=== PATIENT | female | born 1975 | race African-American/Black ===

== ENCOUNTER 2017-02-12 09:24 | Inpatient (IN) | payer MEDICARE, MEDICAID ==
[~2017-02-12] VITALS: Ht 157.5 cm; Wt 107.5 kg
[2017-02-12] MEDS ORDERED: IV NORMAL SALINE 1,000ML 1,000 ML IV ONE (10:00)
[2017-02-12 10:17] LABS: BASO % 0 % (0-3); EOS % 0 % (0-3); HEMATOCRIT 26.8 % (36.0-47.0); HEMOGLOBIN 8.4 g/dL (12.0-15.5); LYMPH % 9 % (24-48); MEAN CORPUSCULAR HEMOGLOBIN 24 pg (25-35); MEAN CORPUSCULAR HGB CONC 31 g/dL (31-37); MEAN CORPUSCULAR VOLUME 75 fL (79-100); MONO # 0.5 x10^3/uL (0.0-1.1); MONO % 4 % (0-9); NEUT # 9.8 x10^3uL (1.8-7.7); NEUT % 87 % (31-73); PLATELET COUNT 290 x10^3/uL (140-400); RED BLOOD COUNT 3.58 x10^6/uL (3.50-5.40); RED CELL DISTRIBUTION WIDTH 16.7 % (11.5-14.5); WHITE BLOOD COUNT 11.3 x10^3/uL (4.0-11.0)
[2017-02-12 10:28] LABS: ALBUMIN 2.5 g/dL (3.4-5.0); ALBUMIN/GLOBULIN RATIO 0.4 (1.0-1.7); CALCIUM 9.2 mg/dL (8.5-10.1); CREATININE 1.2 mg/dL (0.6-1.0); GFR 49.3; POTASSIUM 3.2 mmol/L (3.5-5.1); TOTAL BILIRUBIN 0.8 mg/dL (0.2-1.0)
[2017-02-12] MEDS ORDERED: ACETAMINOPHEN 325 MG TABLET PO ONE (10:30)
[2017-02-12] MEDS ORDERED: KETOROLAC 30 MG/ML VIAL. IV ONE (10:30)
[2017-02-12] MEDS ORDERED: ONDANSETRON PF 4 MG/2 ML VIAL. IV ONE (10:30)
--- NOTE | 2017-02-12 10:32 | RAD ---
CHEST PA LATERAL History:fever, cough Comparison: 09/27/2010 Findings:2 views of the chest are submitted. There is patchy mild airspace opacity of the mid to inferior left hemithorax. There is some fullness of the left hilum as seen previously. Heart size is stable. There is no pneumothorax or dependent pleural fluid. Lung markings medial right lung base are fairly similar in appearance. Impression: 1.There is some patchy airspace opacity of the left hemithorax which may be due to pneumonia. 2. There is again some fullness of the left hilum, possibly due to underlying vascular structures as present on the previous exam although lymphadenopathy difficult to exclude by radiograph.
[2017-02-12] MEDS ORDERED: AZITHROMYCIN 500 MG in IV NORMAL SALINE 250ML 250 ML IV ONE (11:30)
[2017-02-12] MEDS ORDERED: cefTRIAXone SODIUM 1 GM VIAL IV ONE (11:34)
[2017-02-12] MEDS ORDERED: IV NORMAL SALINE 50ML 50 ML ONE (11:34)
[2017-02-12 12:23] LABS: BILIRUBIN,URINE NEG (NEG); CLARITY,URINE TURBID; COLOR,URINE AMBER; GLUCOSE,URINE NEG (NEG)
[2017-02-12 12:24] LABS: BACTERIA,URINE MOD /HPF (0-FEW); NITRITE,URINE NEG (NEG); RBC,URINE >40 /HPF (0-2); SQUAMOUS EPITHELIAL CELL,UR MANY /LPF; UROBILINOGEN,URINE 8 mg/dL (0.2 mg/dL)
[2017-02-12] MEDS: IV NORMAL SALINE 1,000ML 1,000 ML IV SCH ×2 (12:32→20:32)
[2017-02-12] MEDS: ACETAMINOPHEN 325 MG TABLET PO PRN ×2 (12:41→23:03)
[2017-02-12] MEDS ORDERED: ONDANSETRON PF 4 MG/2 ML VIAL. IV PRN (12:45)
[2017-02-12] MEDS ORDERED: IV NORMAL SALINE 250ML 250 ML ONE (12:47)
[2017-02-12] MEDS ORDERED: AZITHROMYCIN 500 MG VIAL. IV ONE (12:48)
[2017-02-12] MEDS ORDERED: IPRATRPIUM/ALBUTEROL 0.5/2.5MG 3 ML NEBU. ONE (13:09)
[2017-02-12] MEDS: IPRATRPIUM/ALBUTEROL 0.5/2.5MG 3 ML NEBU. NEB SCH ×2 (13:16→20:40)
--- NOTE | 2017-02-12 13:55 | PHYS DOC ---
Adult General Chief Complaint Chief Complaint: NAUSEA/VOMITING/DIARRHEA HPI HPI Patient is a 41-year-old female who presents to the ER today complaining of fevers, cough, congestion 2 weeks however over the last 1-2 days patient's been getting much worse. Patient reports she's had nausea vomiting for approximately 3-4 days now and has not been able keep anything down. Patient reports she barely ate anything during Thanksgiving. Patient reports she's had a dry productive cough with occasional yellow sputum. Patient complains of a sore throat, headache, fever, diffuse myalgias, diarrhea, abdominal cramping, no dysuria frequency or urgency. Review of systems: Constitutional: Denies fever or chills Eyes: Denies change in visual acuity, redness, or eye pain HENT: Denies nasal congestion or sore throat Respiratory: Denies cough or shortness of breath All other systems were reviewed and found to be within normal limits, except as documented in this note. Physical exam: Constitutional: Well developed, well nourished, no acute distress, non-toxic appearance. HENT: Normocephalic, atraumatic, bilateral external ears normal, nose normal. Eyes: PERRLA, EOMI, conjunctiva normal, no discharge. Neck: Normal range of motion, no tenderness, supple, no stridor. Cardiovascular: Heart rate regular rhythm, Lungs & Thorax: Bilateral breath sounds clear to auscultation Abdomen: No abdominal distention. Skin: Warm, dry, no erythema, no rash. Back: Normal spinal curvature Extremities: No tenderness, no cyanosis, no clubbing, ROM intact, no edema. Neurologic: Alert and oriented X 3, normal motor function, normal sensory function, no focal deficits noted. Psychologic: Affect normal, judgement normal, mood normal. Patient's ER physical exam was most unremarkable: And expiratory wheezing. Warm to touch. No respiratory distress. Patient appears fatigued. No nuchal rigidity , Kernig's, Brudzinski sign. EKG as interpreted by ER physician reveals: Chest x-ray as interpreted by ER physician reveals: Left lower lobe infiltrate per radiology read. Perihilar lymphadenopathy consistent with first sarcoidosis. Labs reviewed: Microcytic anemia Assessment and plan: 1. Pneumonia: Patient lives here today with cough congestion fever with an x- ray consistent with pneumonia. Patient was started on her sepsis protocol with 30 mL/kg of normal saline. Patient was started on IV antibiotics with Rocephin and Zithromax. Patient will be admitted to the hospital for further evaluation and management of her pneumonia sepsis dehydration. Current Medications Current Medications Current Medications Medications (Trade) Dose Ordered Sig/Radha Start Time Stop Time Status Last Admin Dose Admin Acetaminophen (Tylenol) 650 mg PRN Q8HRS PRN 02/12/17 12:45 02/13/17 12:44 02/12/17 12:41 650 MG Azithromycin 500 mg/Sodium Chloride 250 ml @ 250 mls/hr 1X ONCE 02/12/17 11:30 02/12/17 12:29 DC 02/12/17 11:30 250 MLS/HR Ceftriaxone Sodium 1 gm/ Sodium Chloride 50 ml @ 100 mls/hr 1X ONCE 02/12/17 11:30 02/12/17 11:59 DC 02/12/17 11:30 100 MLS/HR Fentanyl Citrate (Fentanyl 2ml Vial) 50 mcg 1X ONCE 02/12/17 12:00 02/12/17 12:01 DC 02/12/17 12:03 50 MCG Ketorolac Tromethamine (Toradol) 30 mg 1X ONCE 02/12/17 10:30 02/12/17 10:31 DC Morphine Sulfate (Morphine 4mg Syringe) 4 mg PRN Q2HR PRN 02/12/17 12:45 02/13/17 12:44 Ondansetron HCl (Zofran) 4 mg PRN Q4HRS PRN 02/12/17 12:45 02/13/17 12:44 Sodium Chloride 1,000 ml @ 125 mls/hr Q8H 02/12/17 12:32 02/13/17 12:31 Allergies Allergies Allergies Coded Allergies Type Severity Reaction Last Updated Verified Penicillins Allergy Unknown 02/12/17 Yes Current Patient Data Vital Signs Vital Signs Date Time Temp Pulse Resp B/P (MAP) Pulse Ox O2 Delivery O2 Flow Rate FiO2 02/12/17 13:17 100 Nasal Cannula 1.0 02/12/17 13:07 100.5 109 14 135/70 (91) Lab Results Laboratory Tests Test 02/12/17 09:57 02/12/17 09:59 02/12/17 11:52 02/12/17 13:11 White Blood Count 11.3 x10^3/uL (4.0-11.0) H Red Blood Count 3.58 x10^6/uL (3.50-5.40) Hemoglobin 8.4 g/dL (12.0-15.5) L Hematocrit 26.8 % (36.0-47.0) L Mean Corpuscular Volume 75 fL (79-100) L Mean Corpuscular Hemoglobin 24 pg (25-35) L Mean Corpuscular Hemoglobin Concent 31 g/dL (31-37) Red Cell Distribution Width 16.7 % (11.5-14.5) H Platelet Count 290 x10^3/uL (140-400) Neutrophils (%) (Auto) 87 % (31-73) H Lymphocytes (%) (Auto) 9 % (24-48) L Monocytes (%) (Auto) 4 % (0-9) Eosinophils (%) (Auto) 0 % (0-3) Basophils (%) (Auto) 0 % (0-3) Neutrophils # (Auto) 9.8 x10^3uL (1.8-7.7) H Lymphocytes # (Auto) 1.0 x10^3/uL (1.0-4.8) Monocytes # (Auto) 0.5 x10^3/uL (0.0-1.1) Eosinophils # (Auto) 0.0 x10^3/uL (0.0-0.7) Basophils # (Auto) 0.0 x10^3/uL (0.0-0.2) Sodium Level 137 mmol/L (136-145) Potassium Level 3.2 mmol/L (3.5-5.1) L Chloride Level 101 mmol/L (98-107) Carbon Dioxide Level 24 mmol/L (21-32) Anion Gap 12 (6-14) Blood Urea Nitrogen 20 mg/dL (7-20) Creatinine 1.2 mg/dL (0.6-1.0) H Estimated GFR (Cockcroft-Gault) 49.3 BUN/Creatinine Ratio 17 (6-20) Glucose Level 159 mg/dL (70-99) H Calcium Level 9.2 mg/dL (8.5-10.1) Total Bilirubin 0.8 mg/dL (0.2-1.0) Aspartate Amino Transferase (AST) 20 U/L (15-37) Alanine Aminotransferase (ALT) 21 U/L (14-59) Alkaline Phosphatase 171 U/L (46-116) H Total Protein 9.0 g/dL (6.4-8.2) H Albumin 2.5 g/dL (3.4-5.0) L Albumin/Globulin Ratio 0.4 (1.0-1.7) L Lipase 74 U/L (73-393) Lactic Acid Level 2.0 mmol/L (0.4-2.0) Urine Collection Type Unknown Urine Color Liz Urine Clarity Turbid Urine pH 6.0 Urine Specific [place] 1.020 Urine Protein >100 mg/dl (NEG-TRACE) Urine Glucose (UA) Neg mg/dL (NEG) Urine Ketones (Stick) Neg mg/dL (NEG) Urine Blood Large (NEG) Urine Nitrite Neg (NEG) Urine Bilirubin Neg (NEG) Urine Urobilinogen Dipstick 8 mg/dL (0.2 mg/dL) Urine Leukocyte Esterase Trace (NEG) Urine RBC >40 /HPF (0-2) Urine WBC 11-20 /HPF (0-4) Urine Squamous Epithelial Cells Many /LPF Urine Bacteria Mod /HPF (0-FEW) POC Urine HCG, Qualitative hcg negative (Negative) EKG EKG [] Radiology/Procedures Radiology/Procedures [] Course & Med Decision Making Course & Med Decision Making Pertinent Labs and Imaging studies reviewed. (See chart for details) [] Dragon Disclaimer Dragon Disclaimer This electronic medical record was generated, in whole or in part, using a voice recognition dictation system. Departure Departure: Impression: Primary Impression: Pneumonia Disposition: ADMITTED INPATIENT Admitting Physician: Terrie Lovell Condition: IMPROVED Referrals: PCP,UNKNOWN (PCP) RIAZ VILLALBA MD Feb 12, 2017 13:55
[2017-02-12 14:09] VITALS: BP 108/59
[2017-02-12] MEDS ORDERED: ALPR2TAB5 (14:50)
--- NOTE | 2017-02-12 16:33 | HP ---
ADMIT DATE: 02/12/2017 HISTORY OF PRESENT ILLNESS: The patient is a 41-year-old female patient who came to the Emergency Room complaining of fever, cough, congestion for the last 2 weeks; however, over the last 1-2 days, the patient has been getting much worse. She reports that she has nausea, vomiting for approximately 3-4 days, now she has not been able to keep anything down. She has also anorexia. She reported that she had dry productive cough with occasional yellow sputum. She has sore throat, headache and diffuse myalgia, diarrhea, abdominal cramping, but denied any dysuria, frequency or hematuria. She was evaluated in the Emergency Room, and her chest x-ray showed that she has a left-sided pneumonia, was given IV fluid as well as IV antibiotic in the form of Rocephin and Zithromax and was admitted for further evaluation and management of her pneumonia, sepsis and dehydration. PAST MEDICAL HISTORY: Significant for sarcoidosis that has been in remission ___ as the last time show her team at [facility] was about 2 years ago. She has not received any steroids for a long time. She has fatty liver. She has also iritis and was treated recently for urinary tract infection with ciprofloxacin. PAST SURGICAL HISTORY: Significant for sleeve surgery in November 2014. She has also 2 fibroids removed from her uterus. ALLERGIES: She has no known drug allergies. MEDICATIONS: She is currently on no medication by prescription or [id number]. FAMILY HISTORY: She has 3 sisters and 2 brothers, all of them younger. Her parents are in their early 60s and both healthy. SOCIAL HISTORY: She is and has no children. She does not smoke, drink alcohol or recreational drugs. She continues to be on disability. REVIEW OF SYSTEMS: The patient denied any blurring of vision, cataract, glaucoma or macular degeneration. Denied any earache, tinnitus or sensorineural deafness. Denied any nosebleeds, but did complain of nasal stuffiness. Denied any sore throat, sore tongue, toothache, hoarseness of voice or difficulty swallowing. Did complain of nausea, vomiting and diarrhea, but no hematemesis, melena or hematochezia. Denied any dysuria, frequency, hematuria. Did complain of shortness of breath and cough, but denied any chest pain, orthopnea, or nocturnal dyspnea. Did complain of aches and pains, anorexia and poor appetite. PHYSICAL EXAMINATION: GENERAL: On arrival to the Emergency Room, she looked well and was clearly in no apparent respiratory distress. No pallor, jaundice, cyanosis, or thyromegaly. No jugular venous distension. No limb edema. VITAL SIGNS: Her heart rate was 119, blood pressure 141/89, temperature was 99.3, respiratory rate was 16, and oxygen saturation was 95%. HEAD, EYES, EARS, NOSE, AND THROAT: Shows normocephalic, atraumatic. NECK: Supple. HEART: Showed normal first and second heart sounds with no gallop, rub or murmur. CHEST: Shows central trachea, equal bilateral expansion, air entry, vesicular sounds. Crepitation mostly in the left side. I could not appreciate any rhonchi. ABDOMEN: Distended, soft, nontender. NEUROLOGIC: She was very sleepy, but arousable. All cranial nerves intact. EXTREMITIES: She moves extremities without difficulty. LABORATORY DATA: On arrival showed a white cell count of 11,300, hemoglobin 8.4, hematocrit 26.8, MCV 75 and platelet count of 290,000 with normal manual differential. Her chemistry showed a serum sodium 137, potassium 3.2, chloride 101, bicarbonate 24, anion gap of 12, BUN 20, creatinine 1.2, estimated GFR was 49 mL per minute. Her glucose was 159. Lactic acid was 2. Calcium was 9.2. Total bilirubin, AST, ALT were normal. Alkaline phosphatase was elevated. Her total protein was 9, albumin 2.5, and her serum lipase was 74. Her urinalysis showed the urine was alex, turbid with a pH of 6, specific gravity of 1.020. The urine was positive for protein, negative for glucose, ketones, large amount of blood, negative for nitrite and bilirubin. There was trace of leukocyte esterase. There was more than 40 rbc's, 11-20 wbc's many, moderate amount of urine bacteria. Her urine test was negative. She has had a chest x-ray, which showed there is some patchy airspace opacity of the left hemithorax, which may be due to pneumonia. There is some fullness of the left hilum, possibly due to underlying vascular structure, although lymphadenopathy is difficult to exclude by radiograph. ASSESSMENT AND PLAN: In summary, this is a 41-year-old female patient who is known to have longstanding sarcoidosis in remission, came with a complaint of nausea, vomiting, diarrhea, anorexia, generalized weakness and fever together with cough, chest pain and yellowish to brownish sputum. Chest x-ray showed that she has left lung pneumonia. She was treated with IV fluid and was started on IV Rocephin and Zithromax. We will obviously follow her closely and decide on further management according to her response. ODALIS ANDINO MD DR: MAG/alice JOB#: [id number] / [id number]
[2017-02-12] MEDS: MORPHINE SULFATE 4 MG/ML DISP.SYRIN. IV PRN (16:34)
[2017-02-12 19:10] VITALS: BP 116/64
[2017-02-12 23:12] VITALS: BP 144/70
[2017-02-13 03:00] VITALS: BP 118/68
[2017-02-13] MEDS: MORPHINE SULFATE 4 MG/ML DISP.SYRIN. IV PRN (04:57)
[2017-02-13] MEDS: IPRATRPIUM/ALBUTEROL 0.5/2.5MG 3 ML NEBU. NEB SCH ×3 (05:31→16:21)
[2017-02-13 05:59] LABS: BASO % 0 % (0-3); EOS # 0.1 x10^3/uL (0.0-0.7); EOS % 1 % (0-3); HEMATOCRIT 22.2 % (36.0-47.0); LYMPH # 2.2 x10^3/uL (1.0-4.8); LYMPH % 19 % (24-48); MEAN CORPUSCULAR HEMOGLOBIN 23 pg (25-35); MEAN CORPUSCULAR HGB CONC 31 g/dL (31-37); MEAN CORPUSCULAR VOLUME 75 fL (79-100); MONO # 0.8 x10^3/uL (0.0-1.1); MONO % 7 % (0-9); NEUT # 8.4 x10^3uL (1.8-7.7); NEUT % 73 % (31-73); PLATELET COUNT 256 x10^3/uL (140-400); RED BLOOD COUNT 2.96 x10^6/uL (3.50-5.40); RED CELL DISTRIBUTION WIDTH 16.8 % (11.5-14.5); WHITE BLOOD COUNT 11.6 x10^3/uL (4.0-11.0)
[2017-02-13 06:07] LABS: ALBUMIN 1.9 g/dL (3.4-5.0); ALBUMIN/GLOBULIN RATIO 0.3 (1.0-1.7); C REACTIVE PROTEIN 229.9 mg/L (0-3.3); CALCIUM 7.9 mg/dL (8.5-10.1); CREATININE 0.9 mg/dL (0.6-1.0); GFR 83.1; TOTAL BILIRUBIN 0.6 mg/dL (0.2-1.0); TOTAL PROTEIN 7.4 g/dL (6.4-8.2)
[2017-02-13 06:10] LABS: POTASSIUM 2.8 mmol/L (3.5-5.1)
[2017-02-13 06:11] LABS: HEMOGLOBIN 6.9 g/dL (12.0-15.5)
[2017-02-13] MEDS ORDERED: POTASSIUM CHLORIDE 20 MEQ TABLET.ER. PO ONE ×4 (06:30→10:30)
[2017-02-13 06:40] LABS: SEDIMENTATION RATE > 130 (0-25)
[2017-02-13 07:10] VITALS: BP 138/79
[2017-02-13] MEDS ORDERED: POTASSIUM CHLORIDE 20 MEQ/15 ML ORAL LIQUID. PO ONE ×2 (08:00→09:00)
[2017-02-13] MEDS: ACETAMINOPHEN 325 MG TABLET PO PRN (08:08)
[2017-02-13] MEDS ORDERED: FLU VACC QS2017-18 (36MOS+)/PF 0.5 ML SYRINGE. VAX IM ONE (09:00)
[2017-02-13] MEDS ORDERED: PNEUMOC CONJ VACC 23-VALENT 0.5 ML VIAL. VAX IM ONE (09:00)
[2017-02-13 10:22] LABS: BASO # 0.1 x10^3/uL (0.0-0.2); BASO % 1 % (0-3); EOS # 0.2 x10^3/uL (0.0-0.7); EOS % 2 % (0-3); HEMATOCRIT 24.3 % (36.0-47.0); HEMOGLOBIN 7.5 g/dL (12.0-15.5); LYMPH # 2.5 x10^3/uL (1.0-4.8); LYMPH % 23 % (24-48); MEAN CORPUSCULAR HEMOGLOBIN 23 pg (25-35); MEAN CORPUSCULAR HGB CONC 31 g/dL (31-37); MEAN CORPUSCULAR VOLUME 75 fL (79-100); MONO # 0.7 x10^3/uL (0.0-1.1); MONO % 7 % (0-9); NEUT # 7.3 x10^3uL (1.8-7.7); NEUT % 68 % (31-73); PLATELET COUNT 280 x10^3/uL (140-400); RED BLOOD COUNT 3.25 x10^6/uL (3.50-5.40); RED CELL DISTRIBUTION WIDTH 16.5 % (11.5-14.5); WHITE BLOOD COUNT 10.8 x10^3/uL (4.0-11.0)
[2017-02-13 10:35] LABS: ALBUMIN/GLOBULIN RATIO 0.4 (1.0-1.7); CREATININE 0.9 mg/dL (0.6-1.0); GFR 83.1; POTASSIUM 3.2 mmol/L (3.5-5.1); TOTAL BILIRUBIN 0.5 mg/dL (0.2-1.0); TOTAL PROTEIN 7.4 g/dL (6.4-8.2)
[2017-02-13 11:12] VITALS: BP 141/77
[2017-02-13] MEDS: AZITHROMYCIN 500 MG in IV NORMAL SALINE 250ML 250 ML IV SCH (11:26)
[2017-02-13 15:59] VITALS: BP 140/82
[2017-02-13 18:42] LABS: HEMATOCRIT 24.2 % (36.0-47.0); HEMOGLOBIN 7.4 g/dL (12.0-15.5)
[2017-02-13] MEDS ORDERED: ACETAMINOPHEN 325 MG TABLET PO PRN (18:45)
[2017-02-13 18:51] LABS: CALCIUM 8.3 mg/dL (8.5-10.1); CREATININE 0.7 mg/dL (0.6-1.0); POTASSIUM 3.6 mmol/L (3.5-5.1)
[2017-02-13 19:15] VITALS: BP 163/78
[2017-02-13] MEDS: LACTOBACILLUS RHAMNOSUS GG 1 CAPSULE. PO SCH (20:15)
[2017-02-13] MEDS: HYDROcodone/APAP 5/325MG 1 TAB TABLET PO PRN (20:16)
--- NOTE | 2017-02-13 22:12 | PN ---
DATE: 02/13/2017 SUBJECTIVE: The patient is resting, slightly propped up in bed, in no apparent distress. She is definitely more awake, alert, has had no further episodes of nausea, vomiting, no diarrhea. Denied any chest pain or shortness of breath; however, her potassium this morning was low at 2.8. She also dropped her H and H to 6.9 and 22 and on questioning her, she stated that she has been told that she is anemic, has been treated with multiple courses of iron without much improvement. PHYSICAL EXAMINATION: GENERAL: When I examined her this afternoon, she looked well and was clearly in no apparent respiratory distress, pale, but no jaundice, cyanosis, or thyromegaly. No jugular venous distension. No lower limb edema. VITAL SIGNS: Her heart rate was 97, blood pressure was 141/77, temperature was 97, respiratory rate was 18 and oxygen saturation was 98% on 2 liters of oxygen. HEAD, EYES, EARS, NOSE, AND THROAT: Showed normocephalic, atraumatic. NECK: Supple. HEART: Showed normal first and second heart sounds with no gallop, rub, or murmur. CHEST: Clear to auscultation. No crepitation or rhonchi. ABDOMEN: Distended, soft, nontender. No guarding or rigidity. No organomegaly. Hernial orifices are intact. Bowel sounds normal. NEUROLOGIC: She was awake, alert, responding appropriately. Her cranial nerves intact. She moves extremities without difficulty, although she has been mostly bed bound. Her intake over the last 24 hours was 870, output was 1450. LABORATORY DATA: This morning showed a serum white cell count of 11,600, hemoglobin was 6.9, hematocrit 22.2, MCV 75, and platelet count of 256,000. Her sedimentation rate was more than 130 mm per hour. Her serum sodium was 141, potassium 2.8, chloride 106, bicarbonate 28, anion gap of 7, BUN 10, creatinine 0.9, estimated GFR was 83 mL per minute. Her glucose was 93, calcium was 7.9. Total bilirubin, AST, ALT were normal. Alkaline phosphatase slightly elevated. Her C-reactive protein was high at 229.9 mg/dL. Total protein was 7.4, albumin was 1.9. Urinalysis was unremarkable. ASSESSMENT: In summary, this is a 41-year-old -[place] female patient, who was admitted with: 1. Longstanding sarcoidosis in remission. 2. Nausea, vomiting, diarrhea, anorexia, generalized weakness, and fever together with cough, chest pain, and yellowish to brownish sputum. The chest x-ray is consistent with left lung pneumonia, was treated with community-acquired pneumonia. 3. Dehydration. 4. Hypokalemia. 5. Microcytic hypochromic anemia with hemoglobin 8.4, hematocrit 27 with MCV of 75. 6. Her inflammatory markers were extremely high including an ESR of more than 130 and C-reactive protein of 229.9 mg/dL. 7. Severe protein-calorie malnutrition with serum albumin is only 2 g/dL. PLAN: My plan is to basically replenish her potassium and we have already given her a total of 120 mEq and her potassium has risen to 3.2. I will repeat her labs this evening as well as hemoglobin and hematocrit. I will check her labs again tomorrow and also check her serum iron, TIBC, and serum ferritin. ODALIS ANDINO MD DR: MAG/alice JOB#: [id number] / [id number]
[2017-02-13 23:00] VITALS: BP 166/80
[2017-02-14] MEDS: HYDROcodone/APAP 5/325MG 1 TAB TABLET PO PRN (02:41)
[2017-02-14] MEDS ORDERED: IPRATRPIUM/ALBUTEROL 0.5/2.5MG 3 ML NEBU. ONE (05:59)
[2017-02-14] MEDS ORDERED: ALBUTEROL SULFATE 2.5 MG/3 ML NEBU. NEB PRN (06:00)
[2017-02-14] MEDS: IPRATRPIUM/ALBUTEROL 0.5/2.5MG 3 ML NEBU. NEB SCH ×4 (06:03→21:49)
[2017-02-14 07:00] VITALS: BP 123/72
[2017-02-14 07:35] LABS: HEMATOCRIT 24.6 % (36.0-47.0); HEMOGLOBIN 7.7 g/dL (12.0-15.5); RED BLOOD COUNT 3.27 x10^6/uL (3.50-5.40); RED CELL DISTRIBUTION WIDTH 16.3 % (11.5-14.5); WHITE BLOOD COUNT 8.4 x10^3/uL (4.0-11.0)
[2017-02-14 07:40] LABS: ALBUMIN/GLOBULIN RATIO 0.4 (1.0-1.7); CALCIUM 8.4 mg/dL (8.5-10.1); CREATININE 0.7 mg/dL (0.6-1.0); POTASSIUM 3.3 mmol/L (3.5-5.1); TOTAL BILIRUBIN 0.3 mg/dL (0.2-1.0); TOTAL PROTEIN 7.4 g/dL (6.4-8.2)
[2017-02-14] MEDS ORDERED: KETOROLAC 15 MG/ML VIAL. IV PRN (08:30)
[2017-02-14] MEDS ORDERED: KETOROLAC 15 MG/ML VIAL. IV ONE (08:30)
[2017-02-14] MEDS: LIDOCAINE (700MG/PATCH) PATCH. TD SCH (08:58)
[2017-02-14] MEDS: guaiFENesin DM 600/30MG 1 TAB TAB.ER.12H PO SCH ×2 (08:58→21:38)
[2017-02-14] MEDS: POTASSIUM CHLORIDE 20 MEQ TABLET.ER. PO SCH ×2 (08:58→14:19)
[2017-02-14] MEDS: LACTOBACILLUS RHAMNOSUS GG 1 CAPSULE. PO SCH ×2 (08:58→21:38)
[2017-02-14] MEDS: AZITHROMYCIN 500 MG in IV NORMAL SALINE 250ML 250 ML IV SCH (10:35)
[2017-02-14 11:09] VITALS: BP 148/76
[2017-02-14] MEDS ORDERED: IOHEXOL 300 MG/ML 75 ML VIAL. IV ONE (13:00)
--- NOTE | 2017-02-14 14:15 | RAD ---
CT chest with contrast Indication: Cough and elevated d-dimer. Chest pain. Technique: CT angiogram of the chest with 75 mL of Omnipaque 300 with multi planar MIP reformats. Comparison: None Findings: Slightly suboptimal PE study secondary to contrast bolus timing and body habitus. There are no central or segmental filling defects in the pulmonary arteries. Evaluation of subsegmental arteries is limited. Heart is normal in size. No pericardial effusion. No axillary, mediastinal or hilar adenopathy. Focal consolidation is seen in the apicoposterior segment of the left upper lobe and lingula with air bronchograms. Patchy opacities are seen in the left lower lobe. Right lung is clear. Trace left pleural effusion. Visualized sections through the liver are within normal limits. Spleen within normal limits. No radiopaque gallstones. Visualized pancreas and adrenals are within normal limits. Partial gastrectomy changes. No suspicious bony lesions. Impression: 1. Slightly suboptimal PE study secondary to contrast bolus timing. No central or segmental PE. Subsegmental PE also unlikely however not completely ruled out. 2. Findings of left lung pneumonia with trace left pleural effusion. PQRS Compliance Statement: One or more of the following individualized dose reduction techniques were utilized for this examination: 1. Automated exposure control 2. Adjustment of the mA and/or kV according to patient size 3. Use of iterative reconstruction technique
[2017-02-14 18:38] VITALS: BP 128/74
[2017-02-14 19:04] LABS: FECAL OB PT NEGATIVE (NEG)
[2017-02-14 23:00] VITALS: BP 161/81
[2017-02-15] VITALS (8 sets, daily range): BP systolic 148–226; BP diastolic 77–112
--- NOTE | 2017-02-15 00:26 | PN ---
DATE: 02/14/2017 PROBLEMS: 1. Nausea, vomiting, diarrhea, and weakness. 2. Community-acquired pneumonia, left lung. 3. Dehydration. 4. Severe microcytic anemia, iron study is pending. 5. Markedly elevated inflammatory markers, possible exacerbation of her sarcoidosis. 6. Severe protein-calorie malnutrition. 7. Hypokalemia, being treated. SUBJECTIVE: The patient was seen in her room. She has been having headache. She continues to get headache, particularly when she coughs. Sputum is getting looser now and she is able to bring up some of the sputum, it has been sent to the lab, culture is pending. She is having some left-sided chest pain, which is from the coughing. Overall, does not feel the greatest. OBJECTIVE: VITAL SIGNS: Blood pressure 140/76, pulse 106, respiratory rate 18, pulse ox 98% on room air, this morning, it was 92%, on 2 liters, sitting up in bed. HEENT: Her eyes were clear. Her tongue was moist. Posterior pharynx with some drainage. NECK: Supple. LUNGS: Clear in all hong. CARDIOVASCULAR: Regular rhythm and rate, slightly tachycardic. ABDOMEN: Soft and nontender. EXTREMITIES: Without edema. MUSCULOSKELETAL: She does have palpatory left-sided chest pain. LABORATORY DATA: I did go ahead and check the troponin, it is 0.017. Urinalysis, culture is pending. Possible urinary tract infection. CBC: Hemoglobin 7.7, hematocrit 24.6, MCV is 75. Iron studies are pending. PLAN: We will repeat chest x-ray, lidocaine patch for chest pain. We will administer very small dose of Toradol, replace her potassium, and go from there. ISMAEL WOLFE DO DR: ANNMARIE/alice JOB#: [id number] / [id number]
[2017-02-15 07:49] LABS: BASO % 1 % (0-3); EOS # 0.3 x10^3/uL (0.0-0.7); EOS % 3 % (0-3); HEMATOCRIT 25.7 % (36.0-47.0); HEMOGLOBIN 8.1 g/dL (12.0-15.5); LYMPH # 1.9 x10^3/uL (1.0-4.8); LYMPH % 21 % (24-48); MEAN CORPUSCULAR HEMOGLOBIN 23 pg (25-35); MEAN CORPUSCULAR HGB CONC 31 g/dL (31-37); MEAN CORPUSCULAR VOLUME 75 fL (79-100); MONO # 0.5 x10^3/uL (0.0-1.1); MONO % 5 % (0-9); NEUT # 6.1 x10^3uL (1.8-7.7); NEUT % 70 % (31-73); PLATELET COUNT 438 x10^3/uL (140-400); RED BLOOD COUNT 3.45 x10^6/uL (3.50-5.40); RED CELL DISTRIBUTION WIDTH 16.6 % (11.5-14.5); WHITE BLOOD COUNT 8.8 x10^3/uL (4.0-11.0)
[2017-02-15 07:55] LABS: ALBUMIN 2.2 g/dL (3.4-5.0); ALBUMIN/GLOBULIN RATIO 0.4 (1.0-1.7); CALCIUM 8.7 mg/dL (8.5-10.1); CREATININE 0.8 mg/dL (0.6-1.0); GFR 95.2; MAGNESIUM 1.7 mg/dL (1.8-2.4); POTASSIUM 4.1 mmol/L (3.5-5.1); TOTAL BILIRUBIN 0.3 mg/dL (0.2-1.0)
[2017-02-15] MEDS: LACTOBACILLUS RHAMNOSUS GG 1 CAPSULE. PO SCH ×2 (08:44→21:14)
[2017-02-15] MEDS: POTASSIUM CHLORIDE 20 MEQ TABLET.ER. PO SCH ×2 (08:45→13:29)
[2017-02-15] MEDS: LIDOCAINE (700MG/PATCH) PATCH. TD SCH (08:45)
[2017-02-15] MEDS: AZITHROMYCIN 250 MG TABLET. PO SCH (08:45)
[2017-02-15] MEDS: guaiFENesin DM 600/30MG 1 TAB TAB.ER.12H PO SCH ×2 (08:45→21:14)
[2017-02-15 08:52] LABS: % BANDS 2 % (0-9); % EOS 2 % (0-5); % LYMPHS 29 % (24-48); % MONOS 1 % (0-10); % SEGS 65 % (35-66)
[2017-02-15 08:53] LABS: HYPOCHROMIA SLIGHT; PLATELET CLUMP PRESENT; PLT ESTIMATE ADEQUATE (ADEQUATE); POLYCHROMASIA SLIGHT
[2017-02-15 08:54] LABS: MICROCYTOSIS SLIGHT; OVALOCYTES OCC
--- NOTE | 2017-02-15 09:11 | PDOC2 ---
TEODOROJOSHUA Jose MANAGER JAVA 02/15/17 0911: CONSULT Date of Admission DATE: 02/15/17 TIME: 09:09 Reason for Consult: hypertension Problem List Problems Medical Problems: (1) Pneumonia Status: Acute History of Present Illness Ms Pryor is a 41 year old female with history of hypertension, diabetes, sarcoidosis, who presented with complaints of dyspnea and atypical chest pain. She was found to have pneumonia and admitted for tx. This am she was noted to have elevated blood pressures so consult was called. She reports she was treated for hypertension until ~2 years ago when she underwent bariatric surgery and that she has not required medical therapy for hypertension or diabetes since that time. She denies any cardiac issues and reports having echocardiogram and stress testing at where she was being managed for her sarcoidosis. She reports these were normal. She also reports a prior cardiac cath at during the same time which also failed to reveal any significant abnormalities. She reports cough, dyspnea and chest discomfort with cough, fever and chills for about the last two weeks. She is beginning to feel better but continues to cough at this time. She denies congestive symptoms, other chest discomforts, palpitations or syncope. Past Medical History sarcoidosis, managed by , that has been in remission about 2 years. She reports full cardiac workup at that time which was negative. Additional history includes hypertension, diabetes, fatty liver, iritis, UTI, Uterine fibroids, chronic anemia Past Surgical History gastric sleeve surgery in November 2014. removal of uterine fibroids. Family History She has 3 sisters and 2 brothers, all of them younger. Her parents are in their early 60s and both healthy. Cardiomyopathy in paternal grandfather. Social History She is a non smoker, denies significant ETOH, or illicit drugs. She is and has no children. She is disabled. Current Medications Current Medications Ondansetron HCl (Zofran) 4 mg 1X ONCE IV Last administered on 02/12/17 10:18 ; Start 02/12/17 at 10:30; Stop 02/12/17 at 10:31; Status DC Sodium Chloride 1,000 ml @ 1,000 mls/hr 1X ONCE IV Last administered on 02/12 10:19; Start 02/12/17 at 10:00; Stop 02/12/17 at 10:59; Status DC Acetaminophen (Tylenol) 650 mg 1X ONCE PO ; Start 02/12/17 at 10:30; Stop at 10:31; Status DC Ketorolac Tromethamine (Toradol) 30 mg 1X ONCE IV ; Start 02/12/17 at 10:30; Stop 02/12/17 at 10:31; Status DC Ceftriaxone Sodium 1 gm/ Sodium Chloride 50 ml @ 100 mls/hr 1X ONCE IV Last administered on 02/12/17 11:30; Start 02/12/17 at 11:30; Stop 02/12/17 at 11 :59; Status DC Azithromycin 500 mg/Sodium Chloride 250 ml @ 250 mls/hr 1X ONCE IV Last administered on 02/12/17 11:30; Start 02/12/17 at 11:30; Stop 02/12/17 at 12 :29; Status DC Fentanyl Citrate (Fentanyl 2ml Vial) 50 mcg 1X ONCE IV Last administered on 12:03; Start 02/12/17 at 12:00; Stop 02/12/17 at 12:01; Status DC Ondansetron HCl (Zofran) 4 mg PRN Q4HRS PRN IV NAUSEA/VOMITING; Start at 12:45; Stop 02/13/17 at 12:44; Status DC Morphine Sulfate (Morphine 4mg Syringe) 4 mg PRN Q2HR PRN IV PAIN Last administered on 02/13/17 04:57; Start 02/12/17 at 12:45; Stop 02/13/17 at 12 :44; Status DC Sodium Chloride 1,000 ml @ 125 mls/hr Q8H IV Last administered on 02/12/17 20:32; Start 02/12/17 at 12:32; Stop 02/13/17 at 07:39; Status DC Acetaminophen (Tylenol) 650 mg PRN Q8HRS PRN PO FEVER Last administered on 08:08; Start 02/12/17 at 12:45; Stop 02/13/17 at 12:44; Status DC Albuterol/ Ipratropium (Duoneb) 3 ml RTQID NEB Last administered on 02/13/17 16:21; Start 02/12/17 at 16:00; Stop 02/13/17 at 15:59; Status DC Influenza Virus Vaccine Quadrival (Fluarix Quad 3722-5537 Syringe) 0.5 ml ONCE ONCE VAX IM ; Start 02/13/17 at 09:00; Stop 02/13/17 at 09:01; Status Cancel Pneumococcal Polyvalent Vaccine (Pneumovax 23) 0.5 ml ONCE ONCE VAX IM ; Start 02/13/17 at 09:00; Stop 02/13/17 at 09:01; Status DC Potassium Chloride (Klor-Con) 40 meq 1X ONCE PO Last administered on 06:44; Start 02/13/17 at 06:30; Stop 02/13/17 at 06:38; Status DC Potassium Chloride (Klor-Con) 40 meq 1X ONCE PO ; Start 02/13/17 at 08:30; Stop 02/13/17 at 08:30; Status DC Potassium Chloride (Klor-Con) 40 meq 1X ONCE PO ; Start 02/13/17 at 10:30; Stop 02/13/17 at 10:31; Status Cancel Potassium Chloride (KCl Oral Soln) 40 meq 1X ONCE PO Last administered on 08:09; Start 02/13/17 at 08:00; Stop 02/13/17 at 08:01; Status DC Potassium Chloride (KCl Oral Soln) 40 meq 1X ONCE PO ; Start 02/13/17 at 09:00 ; Stop 02/13/17 at 09:01; Status Cancel Potassium Chloride (Klor-Con) 40 meq 1X ONCE PO Last administered on 09:16; Start 02/13/17 at 09:00; Stop 02/13/17 at 09:01; Status DC Azithromycin 500 mg/Sodium Chloride 250 ml @ 250 mls/hr Q24H IV Last administered on 02/14/17 10:35; Start 02/13/17 at 11:00; Stop 02/14/17 at 13 :27; Status DC Ceftriaxone Sodium 1 gm/ Sodium Chloride 50 ml @ 100 mls/hr Q24H IV Last administered on 02/14/17 10:36; Start 02/13/17 at 10:00 Lactobacillus Rhamnosus (Culturelle) 1 cap BID PO Last administered on 08:44; Start 02/13/17 at 21:00 Acetaminophen (Tylenol) 650 mg PRN Q4HRS PRN PO PAIN / TEMP Last administered on 02/13/17 18:51; Start 02/13/17 at 18:45 Acetaminophen/ Hydrocodone Bitart (Lortab 5/325) 1 tab PRN Q4HRS PRN PO PAIN Last administered on 02/14/17 02:41; Start 02/13/17 at 19:30 Albuterol/ Ipratropium (Duoneb) 3 ml RTQID NEB Last administered on 02/14/17 21:49; Start 02/14/17 at 08:00 Albuterol Sulfate (Ventolin) 2.5 mg PRN Q4HRS PRN NEB SHORTNESS OF BREATH; Start 02/14/17 at 06:00 Guaifenesin (MUCINEX ER with DM) 1 tab BID PO Last administered on 02/15/17 08:45; Start 02/14/17 at 09:00 Lidocaine (Lidoderm) 1 patch DAILY TD Last administered on 02/14/17 08:58; Start 02/14/17 at 09:00 Potassium Chloride (Klor-Con) 20 meq BID92 PO Last administered on 02/15/17 08:45; Start 02/14/17 at 09:00 Ketorolac Tromethamine (Toradol) 15 mg PRN Q6HRS PRN IV PAIN; Start 02/14/17 at 08:30; Stop 02/19/17 at 08:29 Ketorolac Tromethamine (Toradol) 15 mg 1X ONCE IV Last administered on 08:59; Start 02/14/17 at 08:30; Stop 02/14/17 at 08:32; Status DC Sodium Chloride 50 ml @ As Directed STK-MED ONCE .ROUTE ; Start 02/12/17 at 11: 34; Stop 02/14/17 at 10:59; Status DC Ceftriaxone Sodium (Rocephin) 1 gm STK-MED ONCE IV ; Start 02/12/17 at 11:34; Stop 02/14/17 at 11:00; Status DC Sodium Chloride 250 ml @ As Directed STK-MED ONCE .ROUTE ; Start 02/12/17 at 12:47; Stop 02/14/17 at 11:01; Status DC Azithromycin (Zithromax) 500 mg STK-MED ONCE IV ; Start 02/12/17 at 12:48; Stop 02/14/17 at 11:01; Status DC Albuterol/ Ipratropium (Duoneb) 3 ml STK-MED ONCE .ROUTE ; Start 02/12/17 at 13 :09; Stop 02/14/17 at 11:01; Status DC Albuterol/ Ipratropium (Duoneb) 3 ml STK-MED ONCE .ROUTE ; Start 02/14/17 at 05 :59; Stop 02/14/17 at 11:10; Status DC Iohexol (Omnipaque 300 Mg/ml) 75 ml 1X ONCE IV Last administered on t 13:42; Start 02/14/17 at 13:00; Stop 02/14/17 at 13:01; Status DC Azithromycin (Zithromax) 500 mg DAILY PO Last administered on 02/15/17t 08:45 ; Start 02/15/17 at 09:00 Labetalol HCl (Normodyne) 10 mg PRN Q2HR PRN IVP HYPERTENSION, SEE COMMENTS; Start 02/15/17 at 08:15 Influenza Virus Vaccine Quadrival (Fluarix Quad [id number] Syringe) 0.5 ml ONCE ONCE VAX IM ; Start 02/16/17 at 09:00; Stop 02/16/17 at 09:01 Active Scripts Active Reported Alprazolam 2 Mg Tablet Allergies: Coded Allergies: Penicillins (Verified Allergy, Intermediate, 02/13/17) Review of System as per HPI General: Alert, Oriented X3, Cooperative, No acute distress HEENT: Atraumatic, EOMI Lungs: Other (decreased bases) Heart: Regular rate, Normal S1, Normal S2 Abdomen: Normal bowel sounds, Soft Extremities: No cyanosis, Normal pulses Neuro: Normal speech, Strength at 5/5 X4 ext Psych/Mental Status: Mental status NL, Mood NL VITALS Vital Signs Date Time Temp Pulse Resp B/P (MAP) Pulse Ox O2 Delivery O2 Flow Rate FiO2 02/15/17 08:00 Room Air 02/15/17 05:42 99 02/15/17 03:30 92 18 148/86 (106) 02/14/17 20:00 2.0 02/13/17 19:15 97.4 Labs Laboratory Tests Test 02/13/17 10:13 02/13/17 18:25 02/14/17 07:04 02/14/17 11:54 White Blood Count 10.8 x10^3/uL (4.0-11.0) 8.4 x10^3/uL (4.0-11.0) Red Blood Count 3.25 x10^6/uL (3.50-5.40) 3.27 x10^6/uL (3.50-5.40) Hemoglobin 7.5 g/dL (12.0-15.5) 7.4 g/dL (12.0-15.5) 7.7 g/dL (12.0-15.5) Hematocrit 24.3 % (36.0-47.0) 24.2 % (36.0-47.0) 24.6 % (36.0-47.0) Mean Corpuscular Volume 75 fL (79-100) 75 fL (79-100) Mean Corpuscular Hemoglobin 23 pg (25-35) 24 pg (25-35) Mean Corpuscular Hemoglobin Concent 31 g/dL (31-37) 31 g/dL (31-37) Red Cell Distribution Width 16.5 % (11.5-14.5) 16.3 % (11.5-14.5) Platelet Count 280 x10^3/uL (140-400) 320 x10^3/uL (140-400) Neutrophils (%) (Auto) 68 % (31-73) Lymphocytes (%) (Auto) 23 % (24-48) Monocytes (%) (Auto) 7 % (0-9) Eosinophils (%) (Auto) 2 % (0-3) Basophils (%) (Auto) 1 % (0-3) Neutrophils # (Auto) 7.3 x10^3uL (1.8-7.7) Lymphocytes # (Auto) 2.5 x10^3/uL (1.0-4.8) Monocytes # (Auto) 0.7 x10^3/uL (0.0-1.1) Eosinophils # (Auto) 0.2 x10^3/uL (0.0-0.7) Basophils # (Auto) 0.1 x10^3/uL (0.0-0.2) Sodium Level 141 mmol/L (136-145) 143 mmol/L (136-145) 142 mmol/L (136-145) Potassium Level 3.2 mmol/L (3.5-5.1) 3.6 mmol/L (3.5-5.1) 3.3 mmol/L (3.5-5.1) Chloride Level 107 mmol/L (98-107) 107 mmol/L (98-107) 107 mmol/L (98-107) Carbon Dioxide Level 25 mmol/L (21-32) 26 mmol/L (21-32) 26 mmol/L (21-32) Anion Gap 9 (6-14) 10 (6-14) 9 (6-14) Blood Urea Nitrogen 13 mg/dL (7-20) 10 mg/dL (7-20) 8 mg/dL (7-20) Creatinine 0.9 mg/dL (0.6-1.0) 0.7 mg/dL (0.6-1.0) 0.7 mg/dL (0.6-1.0) Estimated GFR (Cockcroft-Gault) 83.1 111.0 111.0 BUN/Creatinine Ratio 14 (6-20) 11 (6-20) Glucose Level 145 mg/dL (70-99) 122 mg/dL (70-99) 98 mg/dL (70-99) Calcium Level 8.0 mg/dL (8.5-10.1) 8.3 mg/dL (8.5-10.1) 8.4 mg/dL (8.5-10.1) Total Bilirubin 0.5 mg/dL (0.2-1.0) 0.3 mg/dL (0.2-1.0) Aspartate Amino Transf (AST/SGOT) 16 U/L (15-37) 17 U/L (15-37) Alanine Aminotransferase (ALT/SGPT) 17 U/L (14-59) 19 U/L (14-59) Alkaline Phosphatase 143 U/L (46-116) 145 U/L (46-116) Total Protein 7.4 g/dL (6.4-8.2) 7.4 g/dL (6.4-8.2) Albumin 2.0 g/dL (3.4-5.0) 2.0 g/dL (3.4-5.0) Albumin/Globulin Ratio 0.4 (1.0-1.7) 0.4 (1.0-1.7) Troponin I Quantitative < 0.017 ng/mL (0-0.055) D-Dimer (Radha) 3.30 mg/L (0.00-0.50) Test 02/14/17 18:27 02/15/17 07:15 Stool Occult Blood Negative (NEG) White Blood Count 8.8 x10^3/uL (4.0-11.0) Red Blood Count 3.45 x10^6/uL (3.50-5.40) Hemoglobin 8.1 g/dL (12.0-15.5) Hematocrit 25.7 % (36.0-47.0) Mean Corpuscular Volume 75 fL (79-100) Mean Corpuscular Hemoglobin 23 pg (25-35) Mean Corpuscular Hemoglobin Concent 31 g/dL (31-37) Red Cell Distribution Width 16.6 % (11.5-14.5) Platelet Count 438 x10^3/uL (140-400) Neutrophils (%) (Auto) 70 % (31-73) Lymphocytes (%) (Auto) 21 % (24-48) Monocytes (%) (Auto) 5 % (0-9) Eosinophils (%) (Auto) 3 % (0-3) Basophils (%) (Auto) 1 % (0-3) Neutrophils # (Auto) 6.1 x10^3uL (1.8-7.7) Lymphocytes # (Auto) 1.9 x10^3/uL (1.0-4.8) Monocytes # (Auto) 0.5 x10^3/uL (0.0-1.1) Eosinophils # (Auto) 0.3 x10^3/uL (0.0-0.7) Basophils # (Auto) 0.0 x10^3/uL (0.0-0.2) Segmented Neutrophils % 65 % (35-66) Band Neutrophils % 2 % (0-9) Lymphocytes % 29 % (24-48) Monocytes % 1 % (0-10) Eosinophils % 2 % (0-5) Platelet Estimate Adequate (ADEQUATE) Platelet Clumps, EDTA Present Large Platelets Occ Giant Platelets Few Polychromasia Slight Hypochromasia Slight Microcytosis Slight Ovalocytes Occ Sodium Level 138 mmol/L (136-145) Potassium Level 4.1 mmol/L (3.5-5.1) Chloride Level 104 mmol/L (98-107) Carbon Dioxide Level 28 mmol/L (21-32) Anion Gap 6 (6-14) Blood Urea Nitrogen 6 mg/dL (7-20) Creatinine 0.8 mg/dL (0.6-1.0) Estimated GFR (Cockcroft-Gault) 95.2 BUN/Creatinine Ratio 8 (6-20) Glucose Level 82 mg/dL (70-99) Calcium Level 8.7 mg/dL (8.5-10.1) Magnesium Level 1.7 mg/dL (1.8-2.4) Total Bilirubin 0.3 mg/dL (0.2-1.0) Aspartate Amino Transf (AST/SGOT) 17 U/L (15-37) Alanine Aminotransferase (ALT/SGPT) 18 U/L (14-59) Alkaline Phosphatase 157 U/L (46-116) Total Protein 8.0 g/dL (6.4-8.2) Albumin 2.2 g/dL (3.4-5.0) Albumin/Globulin Ratio 0.4 (1.0-1.7) Images CTA - Impression: 1. Slightly suboptimal PE study secondary to contrast bolus timing. No central or segmental PE. Subsegmental PE also unlikely however not completely ruled out. 2. Findings of left lung pneumonia with trace left pleural effusion. CXR - Impression: 1.There is some patchy airspace opacity of the left hemithorax which may be due to pneumonia. 2. There is again some fullness of the left hilum, possibly due to underlying vascular structures as present on the previous exam although lymphadenopathy difficult to exclude by radiograph. Assessment/Plan 1. accelerated hypertension - start losartan. continue labetalol prn. check echo. 2. pneumonia - abx per PCP 3. anemia - per PCP 4. sarcoidosis 5. hx of diabetes mellitus - off meds since gastric sleeve surgery Start Losartan, continue PRN labetalol, check echo and request records from [facility]. Problems: CHEPE PANIAGUA MD 02/15/17 1438: CONSULT Allergies: Coded Allergies: Penicillins (Verified Allergy, Intermediate, 02/13/17) Assessment/Plan Patient seen and examined. Agree with STONE LAYER's assessment and plan. Agree with initiating losartan for better blood pressure control. 2-D echo showed normal LV function without any regional wall motion abnormalities. Continue current treatment for pneumonia. Thank you for your consultation. Problems: JOSHUA VALERIO APRN Feb 15, 2017 09:11 CHEPE PANIAGUA MD Feb 15, 2017 14:38
[2017-02-15] MEDS: IPRATRPIUM/ALBUTEROL 0.5/2.5MG 3 ML NEBU. NEB SCH ×3 (09:12→20:24)
[2017-02-15] MEDS: LOSARTAN 25 MG TABLET. PO SCH (09:33)
--- NOTE | 2017-02-15 13:53 | CARD ---
APPROVED REPORT EXAM: Two-dimensional and M-mode echocardiogram with Doppler and color Doppler. Other Information Quality : Good INDICATION Hypertension/HCVD Chest Pain 2D DIMENSIONS Left Atrium(2D)3.4 (1.6-4.0cm)IVSd1.4 (0.7-1.1cm) Aortic Root(2D)3.6 (2.0-3.7cm)LVDd4.5 (3.9-5.9cm) LVOT Diameter2.0 (1.8-2.4cm)PWd1.4 (0.7-1.1cm) LVDs3.1 (2.5-4.0cm)FS (%) 31.2 % SV53.9 mlLVEF(%)59.1 (>50%) Aortic Valve AoV Peak Bruno.137.1cm/sAoV VTI25.6cm AO Peak GR.7.5mmHgLVOT Peak Bruno.96.8cm/s LVOT VTI 20.77cmAO Mean GR.4mmHg JOHN (VMAX)2.64aa6WAG (VTI)2.59cm2 Mitral Valve MV E Rwryuddj054.5cm/sMV DECEL FICU449pw MV A Lkiryyzo761.1cm/sE/A Ratio1.1 Tricuspid Valve TR P. Vbgvbntf374tx/sRAP [id number] TR Peak Gr.77rpLeXQPP63boEw LEFT VENTRICLE The left ventricle is normal size. There is mild to moderate concentric left ventricular hypertrophy. Left ventricle systolic function is normal. The Ejection Fraction is 55-60%. There is normal LV segm ental wall motion. RIGHT VENTRICLE The right ventricle is normal size. The right ventricular systolic function is normal. ATRIA The left atrium size is normal. The right atrium size is normal. The interatrial septum is intact wit h no evidence for an atrial septal defect or patent foramen ovale as noted on 2-D or Doppler imaging. AORTIC VALVE The aortic valve is normal in structure and function. Doppler and Color Flow revealed no significant aortic regurgitation. There is no significant aortic valvular stenosis. There is no aortic valvular v egetation. MITRAL VALVE The mitral valve is mildly thickened. There is no evidence of mitral valve prolapse. There is no mitr al valve stenosis. Doppler and Color-flow revealed mild mitral regurgitation. TRICUSPID VALVE The tricuspid valve is normal in structure. Doppler and Color Flow revealed mild tricuspid regurgitat ion. There is moderate pulmonary hypertension. The PA pressure was estimated at 50 mmHg. There is no tricuspid valve prolapse or vegetation. There is no tricuspid valve stenosis. PULMONIC VALVE The pulmonary valve is normal in structure and function. Doppler and Color Flow revealed no pulmonic valvular regurgitation. There is no pulmonic valvular stenosis. GREAT VESSELS The aortic root is normal in size. The ascending aorta is normal in size. The IVC is normal in size a nd collapses >50% with inspiration. PERICARDIAL EFFUSION There is no pleural effusion. There is no evidence of significant pericardial effusion. Critical Notification Critical Value: No <Conclusion> Left ventricle systolic function is normal. The Ejection Fraction is 55-60%. There is normal LV segmental wall motion. Mild mitral regurgitation. Mild tricuspid regurgitation. There is moderate pulmonary hypertension. The PA pressure was estimated at 50 mmHg. There is no evidence of significant pericardial effusion.
[2017-02-15] MEDS: LABETALOL 20 MG/4 ML DISP.SYRIN. IVP PRN (17:05)
[2017-02-15] MEDS ORDERED: HYDROcodone/CHLORPHEN POLIS 5 ML SUS.ER.12H PO PRN (18:45)
[2017-02-16 00:27] VITALS: BP 182/91
[2017-02-16] MEDS: LABETALOL 20 MG/4 ML DISP.SYRIN. IVP PRN (00:28)
[2017-02-16 02:00] VITALS: BP 150/89
[2017-02-16 05:00] VITALS: BP 146/90
[2017-02-16] MEDS: IPRATRPIUM/ALBUTEROL 0.5/2.5MG 3 ML NEBU. NEB SCH ×2 (05:20→09:15)
--- NOTE | 2017-02-16 05:57 | PN ---
DATE: 02/15/2017 CURRENT PROBLEMS: 1. Left-sided chest pain, elevated D-dimer. CT negative. 2. Nausea, vomiting, diarrhea and weakness. 3. Community-acquired pneumonia, left lung. 4. Dehydration. 5. Severe microcytic anemia. 6. Marked elevated inflammatory markers. 7. Severe protein-calorie malnutrition. 8. ____, which has been treated. 9. She had an episode of 226/112 blood pressure, which resolved on its own. Hypertensive urgency, questionable related to size of the cuff. The patient is feeling slightly better. Toradol has helped with her left-sided chest pain. She still continues to have it, particularly when she coughs. She still has sputum culture pending and we will address that. OBJECTIVE: VITAL SIGNS: Blood pressure 152/77, pulse 103, respirations 20, O2 sat is 96% on room air, intake was 1520, output 900. Weight is about the same. GENERAL: She is sitting up in bed. HEENT: Her tongue is moist. NECK: Supple. LUNGS: With a few crackles on the left side. CARDIOVASCULAR: Regular rhythm and rate. ABDOMEN: Soft, nontender. EXTREMITIES: Without edema. PLAN: Cardiology is assisting with blood pressure. We are continuing with the antibiotics. Her sputum culture has grown out some gram-positive cocci, but have not been ID'ed and gram-negative rods, but should be covered by ceftriaxone. Urine culture, mixed urogenital roney. Continue antibiotics for 1 more day. Increase activity in the room. She will need to follow up with her sarcoidosis doctor, have her inflammatory markers rechecked when she is discharged, but we are starting to move towards discharge. Also, the CT was negative for PE. ISMAEL WOLFE DO DR: ANNMARIE/alice JOB#: [id number] / [id number]
[2017-02-16 06:54] LABS: BASO # 0.1 x10^3/uL (0.0-0.2); BASO % 1 % (0-3); EOS # 0.2 x10^3/uL (0.0-0.7); EOS % 2 % (0-3); HEMATOCRIT 26.7 % (36.0-47.0); HEMOGLOBIN 8.5 g/dL (12.0-15.5); LYMPH # 2.2 x10^3/uL (1.0-4.8); LYMPH % 27 % (24-48); MEAN CORPUSCULAR HEMOGLOBIN 24 pg (25-35); MEAN CORPUSCULAR HGB CONC 32 g/dL (31-37); MEAN CORPUSCULAR VOLUME 75 fL (79-100); MONO # 0.3 x10^3/uL (0.0-1.1); MONO % 4 % (0-9); NEUT # 5.6 x10^3uL (1.8-7.7); NEUT % 66 % (31-73); PLATELET COUNT 521 x10^3/uL (140-400); RED BLOOD COUNT 3.56 x10^6/uL (3.50-5.40); RED CELL DISTRIBUTION WIDTH 16.6 % (11.5-14.5); WHITE BLOOD COUNT 8.5 x10^3/uL (4.0-11.0)
[2017-02-16 07:00] LABS: ALBUMIN 2.4 g/dL (3.4-5.0); ALBUMIN/GLOBULIN RATIO 0.4 (1.0-1.7); CALCIUM 9.1 mg/dL (8.5-10.1); CREATININE 0.8 mg/dL (0.6-1.0); GFR 95.2; MAGNESIUM 1.7 mg/dL (1.8-2.4); POTASSIUM 4.2 mmol/L (3.5-5.1); TOTAL BILIRUBIN 0.3 mg/dL (0.2-1.0); TOTAL PROTEIN 8.2 g/dL (6.4-8.2)
[2017-02-16 07:20] VITALS: BP 159/87
[2017-02-16 08:49] VITALS: BP 159/87
[2017-02-16] MEDS: LOSARTAN 25 MG TABLET. PO SCH (08:49)
[2017-02-16] MEDS: LACTOBACILLUS RHAMNOSUS GG 1 CAPSULE. PO SCH (08:49)
[2017-02-16] MEDS: POTASSIUM CHLORIDE 20 MEQ TABLET.ER. PO SCH (08:50)
[2017-02-16] MEDS: guaiFENesin DM 600/30MG 1 TAB TAB.ER.12H PO SCH (08:50)
[2017-02-16] MEDS: LIDOCAINE (700MG/PATCH) PATCH. TD SCH (08:52)
[2017-02-16] MEDS: AZITHROMYCIN 250 MG TABLET. PO SCH (08:57)
[2017-02-16] MEDS ORDERED: MAGNESIUM OXIDE 400 MG TABLET PO SCH (09:00)
[2017-02-16] MEDS ORDERED: FLU VACC QS2017-18 (36MOS+)/PF 0.5 ML SYRINGE. VAX IM ONE (09:00)
[2017-02-16] MEDS ORDERED: LEVO750T31 PO (10:16)
[2017-02-16] MEDS ORDERED: LOSA25TA PO (10:16)
[2017-02-16] MEDS ORDERED: MAGN400T22 PO (10:16)
--- NOTE | 2017-02-16 10:26 | PDOC ---
PROGRESS NOTES Diagnosis Problem Problems Medical Problems: (1) Pneumonia Status: Acute Assessment Problems Medical Problems: (1) Pneumonia Status: Acute 1. accelerated hypertension - blood pressure improved on oral Losartan. Remains somewhat elevated. Would recommend home monitoring and outpatient recheck in ~1-2 week with up titration as needed. 2. pneumonia - abx per PCP 3. anemia - per PCP 4. sarcoidosis 5. hx of diabetes mellitus - off meds since gastric sleeve surgery Problems: Subjective feels better, continues to cough. plans to follow up with for cardiology Objective Vital Signs Date Time Temp Pulse Resp B/P (MAP) Pulse Ox O2 Delivery O2 Flow Rate FiO2 02/16/17 08:49 96 159/87 02/16/17 08:00 Room Air 02/16/17 07:20 98.5 20 95 02/15/17 15:22 2.0 Intake and Output 02/16/17 07:00 Intake Total 1490 ml Balance 1490 ml Intake Oral 1440 ml IV Total 50 ml # Voids 8 # Bowel Movements 1 Abdomen: Normal bowel sounds, Soft Heart: Regular rate, Normal S1, Normal S2 Extremities: No cyanosis, Normal pulses General: Alert, Oriented X3, Cooperative Lungs: Other (minimally decreased bases otherwise clear) Neuro: Normal speech, Strength at 5/5 X4 ext Psych/Mental Status: Mental status NL, Mood NL Review of Relevant I have reviewed the following items ирина (where applicable) has been applied. Labs Laboratory Tests Test 02/14/17 11:54 02/14/17 18:27 02/15/17 07:15 02/16/17 06:16 D-Dimer (Ardha) 3.30 mg/L (0.00-0.50) Stool Occult Blood Negative (NEG) White Blood Count 8.8 x10^3/uL (4.0-11.0) 8.5 x10^3/uL (4.0-11.0) Red Blood Count 3.45 x10^6/uL (3.50-5.40) 3.56 x10^6/uL (3.50-5.40) Hemoglobin 8.1 g/dL (12.0-15.5) 8.5 g/dL (12.0-15.5) Hematocrit 25.7 % (36.0-47.0) 26.7 % (36.0-47.0) Mean Corpuscular Volume 75 fL (79-100) 75 fL (79-100) Mean Corpuscular Hemoglobin 23 pg (25-35) 24 pg (25-35) Mean Corpuscular Hemoglobin Concent 31 g/dL (31-37) 32 g/dL (31-37) Red Cell Distribution Width 16.6 % (11.5-14.5) 16.6 % (11.5-14.5) Platelet Count 438 x10^3/uL (140-400) 521 x10^3/uL (140-400) Neutrophils (%) (Auto) 70 % (31-73) 66 % (31-73) Lymphocytes (%) (Auto) 21 % (24-48) 27 % (24-48) Monocytes (%) (Auto) 5 % (0-9) 4 % (0-9) Eosinophils (%) (Auto) 3 % (0-3) 2 % (0-3) Basophils (%) (Auto) 1 % (0-3) 1 % (0-3) Neutrophils # (Auto) 6.1 x10^3uL (1.8-7.7) 5.6 x10^3uL (1.8-7.7) Lymphocytes # (Auto) 1.9 x10^3/uL (1.0-4.8) 2.2 x10^3/uL (1.0-4.8) Monocytes # (Auto) 0.5 x10^3/uL (0.0-1.1) 0.3 x10^3/uL (0.0-1.1) Eosinophils # (Auto) 0.3 x10^3/uL (0.0-0.7) 0.2 x10^3/uL (0.0-0.7) Basophils # (Auto) 0.0 x10^3/uL (0.0-0.2) 0.1 x10^3/uL (0.0-0.2) Segmented Neutrophils % 65 % (35-66) Band Neutrophils % 2 % (0-9) Lymphocytes % 29 % (24-48) Monocytes % 1 % (0-10) Eosinophils % 2 % (0-5) Platelet Estimate Adequate (ADEQUATE) Platelet Clumps, EDTA Present Large Platelets Occ Giant Platelets Few Polychromasia Slight Hypochromasia Slight Microcytosis Slight Ovalocytes Occ Sodium Level 138 mmol/L (136-145) 139 mmol/L (136-145) Potassium Level 4.1 mmol/L (3.5-5.1) 4.2 mmol/L (3.5-5.1) Chloride Level 104 mmol/L (98-107) 103 mmol/L (98-107) Carbon Dioxide Level 28 mmol/L (21-32) 28 mmol/L (21-32) Anion Gap 6 (6-14) 8 (6-14) Blood Urea Nitrogen 6 mg/dL (7-20) 7 mg/dL (7-20) Creatinine 0.8 mg/dL (0.6-1.0) 0.8 mg/dL (0.6-1.0) Estimated GFR (Cockcroft-Gault) 95.2 95.2 BUN/Creatinine Ratio 8 (6-20) 9 (6-20) Glucose Level 82 mg/dL (70-99) 88 mg/dL (70-99) Calcium Level 8.7 mg/dL (8.5-10.1) 9.1 mg/dL (8.5-10.1) Magnesium Level 1.7 mg/dL (1.8-2.4) 1.7 mg/dL (1.8-2.4) Total Bilirubin 0.3 mg/dL (0.2-1.0) 0.3 mg/dL (0.2-1.0) Aspartate Amino Transf (AST/SGOT) 17 U/L (15-37) 16 U/L (15-37) Alanine Aminotransferase (ALT/SGPT) 18 U/L (14-59) 16 U/L (14-59) Alkaline Phosphatase 157 U/L (46-116) 159 U/L (46-116) Troponin I Quantitative < 0.017 ng/mL (0-0.055) Total Protein 8.0 g/dL (6.4-8.2) 8.2 g/dL (6.4-8.2) Albumin 2.2 g/dL (3.4-5.0) 2.4 g/dL (3.4-5.0) Albumin/Globulin Ratio 0.4 (1.0-1.7) 0.4 (1.0-1.7) Triglycerides Level 123 mg/dL (0-150) Cholesterol Level 184 mg/dL (0-200) LDL Cholesterol, Calculated 138 mg/dL (0-100) VLDL Cholesterol, Calculated 24 mg/dL (0-40) Non-HDL Cholesterol Calculated 162 mg/dL (0-129) HDL Cholesterol 22 mg/dL (40-60) Cholesterol/HDL Ratio 8.0 Microbiology 02/12/17 Blood Culture - Preliminary, Resulted NO GROWTH AFTER 3 DAYS 02/14/17 - Final, Resulted 02/14/17 - Final, Resulted 02/14/17 - Final, Resulted 02/14/17 - Final, Resulted 02/14/17 - Final, Resulted 02/14/17 - Final, Resulted 02/14/17 Sputum Culture - Preliminary, Resulted 02/14/17 Sputum Result 1 - Final, Resulted 02/12/17 Urine Culture - Final, Complete 02/12/17 Urine Culture Result 1 (ROBBIE) - Final, Complete Medications Current Medications Ondansetron HCl (Zofran) 4 mg 1X ONCE IV Last administered on 02/12/17 10:18 ; Start 02/12/17 at 10:30; Stop 02/12/17 at 10:31; Status DC Sodium Chloride 1,000 ml @ 1,000 mls/hr 1X ONCE IV Last administered on 02/12 10:19; Start 02/12/17 at 10:00; Stop 02/12/17 at 10:59; Status DC Acetaminophen (Tylenol) 650 mg 1X ONCE PO ; Start 02/12/17 at 10:30; Stop at 10:31; Status DC Ketorolac Tromethamine (Toradol) 30 mg 1X ONCE IV ; Start 02/12/17 at 10:30; Stop 02/12/17 at 10:31; Status DC Ceftriaxone Sodium 1 gm/ Sodium Chloride 50 ml @ 100 mls/hr 1X ONCE IV Last administered on 02/12/17 11:30; Start 02/12/17 at 11:30; Stop 02/12/17 at 11 :59; Status DC Azithromycin 500 mg/Sodium Chloride 250 ml @ 250 mls/hr 1X ONCE IV Last administered on 02/12/17 11:30; Start 02/12/17 at 11:30; Stop 02/12/17 at 12 :29; Status DC Fentanyl Citrate (Fentanyl 2ml Vial) 50 mcg 1X ONCE IV Last administered on 12:03; Start 02/12/17 at 12:00; Stop 02/12/17 at 12:01; Status DC Ondansetron HCl (Zofran) 4 mg PRN Q4HRS PRN IV NAUSEA/VOMITING; Start at 12:45; Stop 02/13/17 at 12:44; Status DC Morphine Sulfate (Morphine 4mg Syringe) 4 mg PRN Q2HR PRN IV PAIN Last administered on 02/13/17 04:57; Start 02/12/17 at 12:45; Stop 02/13/17 at 12 :44; Status DC Sodium Chloride 1,000 ml @ 125 mls/hr Q8H IV Last administered on 02/12/17 20:32; Start 02/12/17 at 12:32; Stop 02/13/17 at 07:39; Status DC Acetaminophen (Tylenol) 650 mg PRN Q8HRS PRN PO FEVER Last administered on 08:08; Start 02/12/17 at 12:45; Stop 02/13/17 at 12:44; Status DC Albuterol/ Ipratropium (Duoneb) 3 ml RTQID NEB Last administered on 02/13/17 16:21; Start 02/12/17 at 16:00; Stop 02/13/17 at 15:59; Status DC Influenza Virus Vaccine Quadrival (Fluarix Quad 5399-9122 Syringe) 0.5 ml ONCE ONCE VAX IM ; Start 02/13/17 at 09:00; Stop 02/13/17 at 09:01; Status Cancel Pneumococcal Polyvalent Vaccine (Pneumovax 23) 0.5 ml ONCE ONCE VAX IM ; Start 02/13/17 at 09:00; Stop 02/13/17 at 09:01; Status DC Potassium Chloride (Klor-Con) 40 meq 1X ONCE PO Last administered on 06:44; Start 02/13/17 at 06:30; Stop 02/13/17 at 06:38; Status DC Potassium Chloride (Klor-Con) 40 meq 1X ONCE PO ; Start 02/13/17 at 08:30; Stop 02/13/17 at 08:30; Status DC Potassium Chloride (Klor-Con) 40 meq 1X ONCE PO ; Start 02/13/17 at 10:30; Stop 02/13/17 at 10:31; Status Cancel Potassium Chloride (KCl Oral Soln) 40 meq 1X ONCE PO Last administered on 08:09; Start 02/13/17 at 08:00; Stop 02/13/17 at 08:01; Status DC Potassium Chloride (KCl Oral Soln) 40 meq 1X ONCE PO ; Start 02/13/17 at 09:00 ; Stop 02/13/17 at 09:01; Status Cancel Potassium Chloride (Klor-Con) 40 meq 1X ONCE PO Last administered on 09:16; Start 02/13/17 at 09:00; Stop 02/13/17 at 09:01; Status DC Azithromycin 500 mg/Sodium Chloride 250 ml @ 250 mls/hr Q24H IV Last administered on 02/14/17 10:35; Start 02/13/17 at 11:00; Stop 02/14/17 at 13 :27; Status DC Ceftriaxone Sodium 1 gm/ Sodium Chloride 50 ml @ 100 mls/hr Q24H IV Last administered on 02/16/17 08:53; Start 02/13/17 at 10:00 Lactobacillus Rhamnosus (Culturelle) 1 cap BID PO Last administered on 08:49; Start 02/13/17 at 21:00 Acetaminophen (Tylenol) 650 mg PRN Q4HRS PRN PO PAIN / TEMP Last administered on 02/13/17 18:51; Start 02/13/17 at 18:45 Acetaminophen/ Hydrocodone Bitart (Lortab 5/325) 1 tab PRN Q4HRS PRN PO PAIN Last administered on 02/14/17 02:41; Start 02/13/17 at 19:30 Albuterol/ Ipratropium (Duoneb) 3 ml RTQID NEB Last administered on 02/16/17 05:20; Start 02/14/17 at 08:00 Albuterol Sulfate (Ventolin) 2.5 mg PRN Q4HRS PRN NEB SHORTNESS OF BREATH; Start 02/14/17 at 06:00 Guaifenesin (MUCINEX ER with DM) 1 tab BID PO Last administered on 02/16/17 08:50; Start 02/14/17 at 09:00 Lidocaine (Lidoderm) 1 patch DAILY TD Last administered on 02/14/17 08:58; Start 02/14/17 at 09:00 Potassium Chloride (Klor-Con) 20 meq BID92 PO Last administered on 02/16/17 08:50; Start 02/14/17 at 09:00 Ketorolac Tromethamine (Toradol) 15 mg PRN Q6HRS PRN IV PAIN; Start 02/14/17 at 08:30; Stop 02/19/17 at 08:29 Ketorolac Tromethamine (Toradol) 15 mg 1X ONCE IV Last administered on 08:59; Start 02/14/17 at 08:30; Stop 02/14/17 at 08:32; Status DC Sodium Chloride 50 ml @ As Directed STK-MED ONCE .ROUTE ; Start 02/12/17 at 11: 34; Stop 02/14/17 at 10:59; Status DC Ceftriaxone Sodium (Rocephin) 1 gm STK-MED ONCE IV ; Start 02/12/17 at 11:34; Stop 02/14/17 at 11:00; Status DC Sodium Chloride 250 ml @ As Directed STK-MED ONCE .ROUTE ; Start 02/12/17 at 12:47; Stop 02/14/17 at 11:01; Status DC Azithromycin (Zithromax) 500 mg STK-MED ONCE IV ; Start 02/12/17 at 12:48; Stop 02/14/17 at 11:01; Status DC Albuterol/ Ipratropium (Duoneb) 3 ml STK-MED ONCE .ROUTE ; Start 02/12/17 at 13 :09; Stop 02/14/17 at 11:01; Status DC Albuterol/ Ipratropium (Duoneb) 3 ml STK-MED ONCE .ROUTE ; Start 02/14/17 at 05 :59; Stop 02/14/17 at 11:10; Status DC Iohexol (Omnipaque 300 Mg/ml) 75 ml 1X ONCE IV Last administered on 13:42; Start 02/14/17 at 13:00; Stop 02/14/17 at 13:01; Status DC Azithromycin (Zithromax) 500 mg DAILY PO Last administered on 02/16/17 08:57 ; Start 02/15/17 at 09:00 Labetalol HCl (Normodyne) 10 mg PRN Q2HR PRN IVP HYPERTENSION, SEE COMMENTS Last administered on 02/16/17 00:28; Start 02/15/17 at 08:15 Influenza Virus Vaccine Quadrival (Fluarix Quad [id number] Syringe) 0.5 ml ONCE ONCE VAX IM ; Start 02/16/17 at 09:00; Stop 02/16/17 at 09:01; Status DC Losartan Potassium (Cozaar) 25 mg DAILY PO Last administered on 02/16/17 08: 49; Start 02/15/17 at 09:30 Chlorphenir/ Hydrocodone Polistirex (Tussionex) 5 ml PRN Q12HR PRN PO COUGH; Start 02/15/17 at 18:45 Magnesium Oxide (Magnesium Oxide) 400 mg DAILY PO Last administered on 08:50; Start 02/16/17 at 09:00 Active Scripts Active Reported Alprazolam 2 Mg Tablet Vitals/I & O Vital Sign - Last 24 Hours 02/15/17 02/15/17 02/15/17 02/15/17 15:22 17:05 18:00 20:00 Temp 99.0 99.0 Pulse 103 87 Resp 20 20 B/P (MAP) 171/94 (119) 200/107 186/94 (124) Pulse Ox 96 96 O2 Delivery Room Air Room Air Room Air O2 Flow Rate 2.0 02/15/17 02/15/17 02/16/17 02/16/17 20:00 20:25 00:27 00:28 Temp 98.0 Pulse 93 90 90 Resp 20 24 B/P (MAP) 162/81 (108) 182/91 (121) 182/91 Pulse Ox 99 94 95 O2 Delivery Room Air Room Air Room Air 02/16/17 02/16/17 02/16/17 02/16/17 02:00 05:00 05:20 07:20 Temp 97.2 98.5 Pulse 83 92 96 Resp 20 20 20 B/P (MAP) 150/89 (109) 146/90 (108) 159/87 (111) Pulse Ox 96 98 95 O2 Delivery Room Air Room Air Room Air Room Air 02/16/17 02/16/17 08:00 08:49 Pulse 96 B/P (MAP) 159/87 O2 Delivery Room Air Intake and Output 02/15/17 02/15/17 02/16/17 15:00 23:00 07:00 Intake Total 550 ml 700 ml 240 ml Balance 550 ml 700 ml 240 ml JOSUHA VALERIO APRN Feb 16, 2017 10:26
--- NOTE | 2017-02-16 14:59 | PDOC3 ---
Discharge Summary Visit Information Final Diagnosis Problems Medical Problems: (1) Pneumonia-gm neg and positive-community acquired, left ll Status: Acute ENT PROBLEMS: 1. Left-sided chest pain, elevated D-dimer. CT negative for pe 2. Nausea, vomiting, diarrhea and weakness.-resolved 3. Community-acquired pneumonia, left lung. 4. Dehydration. 5. Severe microcytic anemia. 6. Marked elevated inflammatory markers. 7. Severe protein-calorie malnutrition. 8. _hypomagnesemia___, which has been treated. 9. hypertensive emergency- cardiology consulted-started back on medication 10 elevated inflammatory markers- sed rate and CRP 11. hypokalemia-treated 12. dvt prophylaxis-received lovonox Problems: Brief Hospital Course Allergies Allergies Coded Allergies Type Severity Reaction Last Updated Verified Penicillins Allergy Intermediate 02/13/17 Yes Vital Signs Vital Signs Date Time Temp Pulse Resp B/P (MAP) Pulse Ox O2 Delivery O2 Flow Rate FiO2 02/16/17 08:49 96 159/87 02/16/17 08:00 Room Air 02/16/17 07:20 98.5 20 95 02/15/17 15:22 2.0 Lab Results Laboratory Tests Test 02/14/17 18:27 02/15/17 07:15 02/16/17 06:16 Stool Occult Blood Negative (NEG) White Blood Count 8.8 x10^3/uL (4.0-11.0) 8.5 x10^3/uL (4.0-11.0) Red Blood Count 3.45 x10^6/uL (3.50-5.40) 3.56 x10^6/uL (3.50-5.40) Hemoglobin 8.1 g/dL (12.0-15.5) 8.5 g/dL (12.0-15.5) Hematocrit 25.7 % (36.0-47.0) 26.7 % (36.0-47.0) Mean Corpuscular Volume 75 fL (79-100) 75 fL (79-100) Mean Corpuscular Hemoglobin 23 pg (25-35) 24 pg (25-35) Mean Corpuscular Hemoglobin Concent 31 g/dL (31-37) 32 g/dL (31-37) Red Cell Distribution Width 16.6 % (11.5-14.5) 16.6 % (11.5-14.5) Platelet Count 438 x10^3/uL (140-400) 521 x10^3/uL (140-400) Neutrophils (%) (Auto) 70 % (31-73) 66 % (31-73) Lymphocytes (%) (Auto) 21 % (24-48) 27 % (24-48) Monocytes (%) (Auto) 5 % (0-9) 4 % (0-9) Eosinophils (%) (Auto) 3 % (0-3) 2 % (0-3) Basophils (%) (Auto) 1 % (0-3) 1 % (0-3) Neutrophils # (Auto) 6.1 x10^3uL (1.8-7.7) 5.6 x10^3uL (1.8-7.7) Lymphocytes # (Auto) 1.9 x10^3/uL (1.0-4.8) 2.2 x10^3/uL (1.0-4.8) Monocytes # (Auto) 0.5 x10^3/uL (0.0-1.1) 0.3 x10^3/uL (0.0-1.1) Eosinophils # (Auto) 0.3 x10^3/uL (0.0-0.7) 0.2 x10^3/uL (0.0-0.7) Basophils # (Auto) 0.0 x10^3/uL (0.0-0.2) 0.1 x10^3/uL (0.0-0.2) Segmented Neutrophils % 65 % (35-66) Band Neutrophils % 2 % (0-9) Lymphocytes % 29 % (24-48) Monocytes % 1 % (0-10) Eosinophils % 2 % (0-5) Platelet Estimate Adequate (ADEQUATE) Platelet Clumps, EDTA Present Large Platelets Occ Giant Platelets Few Polychromasia Slight Hypochromasia Slight Microcytosis Slight Ovalocytes Occ Sodium Level 138 mmol/L (136-145) 139 mmol/L (136-145) Potassium Level 4.1 mmol/L (3.5-5.1) 4.2 mmol/L (3.5-5.1) Chloride Level 104 mmol/L (98-107) 103 mmol/L (98-107) Carbon Dioxide Level 28 mmol/L (21-32) 28 mmol/L (21-32) Anion Gap 6 (6-14) 8 (6-14) Blood Urea Nitrogen 6 mg/dL (7-20) 7 mg/dL (7-20) Creatinine 0.8 mg/dL (0.6-1.0) 0.8 mg/dL (0.6-1.0) Estimated GFR (Cockcroft-Gault) 95.2 95.2 BUN/Creatinine Ratio 8 (6-20) 9 (6-20) Glucose Level 82 mg/dL (70-99) 88 mg/dL (70-99) Calcium Level 8.7 mg/dL (8.5-10.1) 9.1 mg/dL (8.5-10.1) Magnesium Level 1.7 mg/dL (1.8-2.4) 1.7 mg/dL (1.8-2.4) Total Bilirubin 0.3 mg/dL (0.2-1.0) 0.3 mg/dL (0.2-1.0) Aspartate Amino Transf (AST/SGOT) 17 U/L (15-37) 16 U/L (15-37) Alanine Aminotransferase (ALT/SGPT) 18 U/L (14-59) 16 U/L (14-59) Alkaline Phosphatase 157 U/L (46-116) 159 U/L (46-116) Troponin I Quantitative < 0.017 ng/mL (0-0.055) Total Protein 8.0 g/dL (6.4-8.2) 8.2 g/dL (6.4-8.2) Albumin 2.2 g/dL (3.4-5.0) 2.4 g/dL (3.4-5.0) Albumin/Globulin Ratio 0.4 (1.0-1.7) 0.4 (1.0-1.7) Triglycerides Level 123 mg/dL (0-150) Cholesterol Level 184 mg/dL (0-200) LDL Cholesterol, Calculated 138 mg/dL (0-100) VLDL Cholesterol, Calculated 24 mg/dL (0-40) Non-HDL Cholesterol Calculated 162 mg/dL (0-129) HDL Cholesterol 22 mg/dL (40-60) Cholesterol/HDL Ratio 8.0 Brief Hospital Course Ms. Pryor is a 41 old [sex] who presented with [ ] HISTORY OF PRESENT ILLNESS: The patient is a 41-year-old 157/87 P 102 sat 98% on RA female patient who came to the Emergency Room complaining of fever, cough, congestion for the last 2 weeks; however, over the last 1-2 days, the patient has been getting much worse. She reports that she has nausea, vomiting for approximately 3-4 days, now she has not been able to keep anything down. She has also anorexia. She reported that she had dry productive cough with occasional yellow sputum. She has sore throat, headache and diffuse myalgia, diarrhea, abdominal cramping, but denied any dysuria, frequency or hematuria. She was evaluated in the Emergency Room, and her chest x-ray showed that she has a left-sided pneumonia, was given IV fluid as well as IV antibiotic in the form of Rocephin and Zithromax and was admitted for further evaluation and management of her pneumonia, sepsis and dehydration.he had a few very elevated bps and was seen by cardiology and a forearm cuff was used. Her sputum culture grew out gram negative rods and gm positive cocci... She was treated with Ceftriaxone and Zithromax. And breating treatments PE ly8ing quietly in bed. ready to go home. Has appointment with sarcoidosis physician today. tongue moist, throat clear, neck supple, lungs clear in all hong. ext- without edema. Discharge Information Condition at Discharge: Improved Disposition/Orders: D/C to Home Dischare Medications Current Medications Ondansetron HCl (Zofran) 4 mg 1X ONCE IV Last administered on 02/12/17 10:18 ; Start 02/12/17 at 10:30; Stop 02/12/17 at 10:31; Status DC Sodium Chloride 1,000 ml @ 1,000 mls/hr 1X ONCE IV Last administered on 02/12 10:19; Start 02/12/17 at 10:00; Stop 02/12/17 at 10:59; Status DC Acetaminophen (Tylenol) 650 mg 1X ONCE PO ; Start 02/12/17 at 10:30; Stop at 10:31; Status DC Ketorolac Tromethamine (Toradol) 30 mg 1X ONCE IV ; Start 02/12/17 at 10:30; Stop 02/12/17 at 10:31; Status DC Ceftriaxone Sodium 1 gm/ Sodium Chloride 50 ml @ 100 mls/hr 1X ONCE IV Last administered on 02/12/17 11:30; Start 02/12/17 at 11:30; Stop 02/12/17 at 11 :59; Status DC Azithromycin 500 mg/Sodium Chloride 250 ml @ 250 mls/hr 1X ONCE IV Last administered on 02/12/17 11:30; Start 02/12/17 at 11:30; Stop 02/12/17 at 12 :29; Status DC Fentanyl Citrate (Fentanyl 2ml Vial) 50 mcg 1X ONCE IV Last administered on 12:03; Start 02/12/17 at 12:00; Stop 02/12/17 at 12:01; Status DC Ondansetron HCl (Zofran) 4 mg PRN Q4HRS PRN IV NAUSEA/VOMITING; Start at 12:45; Stop 02/13/17 at 12:44; Status DC Morphine Sulfate (Morphine 4mg Syringe) 4 mg PRN Q2HR PRN IV PAIN Last administered on 02/13/17 04:57; Start 02/12/17 at 12:45; Stop 02/13/17 at 12 :44; Status DC Sodium Chloride 1,000 ml @ 125 mls/hr Q8H IV Last administered on 02/12/17 20:32; Start 02/12/17 at 12:32; Stop 02/13/17 at 07:39; Status DC Acetaminophen (Tylenol) 650 mg PRN Q8HRS PRN PO FEVER Last administered on 08:08; Start 02/12/17 at 12:45; Stop 02/13/17 at 12:44; Status DC Albuterol/ Ipratropium (Duoneb) 3 ml RTQID NEB Last administered on 02/13/17 16:21; Start 02/12/17 at 16:00; Stop 02/13/17 at 15:59; Status DC Influenza Virus Vaccine Quadrival (Fluarix Quad [id number] Syringe) 0.5 ml ONCE ONCE VAX IM ; Start 02/13/17 at 09:00; Stop 02/13/17 at 09:01; Status Cancel Pneumococcal Polyvalent Vaccine (Pneumovax 23) 0.5 ml ONCE ONCE VAX IM ; Start 02/13/17 at 09:00; Stop 02/13/17 at 09:01; Status DC Potassium Chloride (Klor-Con) 40 meq 1X ONCE PO Last administered on 06:44; Start 02/13/17 at 06:30; Stop 02/13/17 at 06:38; Status DC Potassium Chloride (Klor-Con) 40 meq 1X ONCE PO ; Start 02/13/17 at 08:30; Stop 02/13/17 at 08:30; Status DC Potassium Chloride (Klor-Con) 40 meq 1X ONCE PO ; Start 02/13/17 at 10:30; Stop 02/13/17 at 10:31; Status Cancel Potassium Chloride (KCl Oral Soln) 40 meq 1X ONCE PO Last administered on 08:09; Start 02/13/17 at 08:00; Stop 02/13/17 at 08:01; Status DC Potassium Chloride (KCl Oral Soln) 40 meq 1X ONCE PO ; Start 02/13/17 at 09:00 ; Stop 02/13/17 at 09:01; Status Cancel Potassium Chloride (Klor-Con) 40 meq 1X ONCE PO Last administered on 09:16; Start 02/13/17 at 09:00; Stop 02/13/17 at 09:01; Status DC Azithromycin 500 mg/Sodium Chloride 250 ml @ 250 mls/hr Q24H IV Last administered on 02/14/17 10:35; Start 02/13/17 at 11:00; Stop 02/14/17 at 13 :27; Status DC Ceftriaxone Sodium 1 gm/ Sodium Chloride 50 ml @ 100 mls/hr Q24H IV Last administered on 02/16/17 08:53; Start 02/13/17 at 10:00; Stop 02/16/17 at 11 :11; Status DC Lactobacillus Rhamnosus (Culturelle) 1 cap BID PO Last administered on 08:49; Start 02/13/17 at 21:00; Stop 02/16/17 at 11:11; Status DC Acetaminophen (Tylenol) 650 mg PRN Q4HRS PRN PO PAIN / TEMP Last administered on 02/13/17 18:51; Start 02/13/17 at 18:45; Stop 02/16/17 at 11:11; Status DC Acetaminophen/ Hydrocodone Bitart (Lortab 5/325) 1 tab PRN Q4HRS PRN PO PAIN Last administered on 02/14/17 02:41; Start 02/13/17 at 19:30; Stop 02/16/17 at 11:11; Status DC Albuterol/ Ipratropium (Duoneb) 3 ml RTQID NEB Last administered on 02/16/17 05:20; Start 02/14/17 at 08:00; Stop 02/16/17 at 11:11; Status DC Albuterol Sulfate (Ventolin) 2.5 mg PRN Q4HRS PRN NEB SHORTNESS OF BREATH; Start 02/14/17 at 06:00; Stop 02/16/17 at 11:11; Status DC Guaifenesin (MUCINEX ER with DM) 1 tab BID PO Last administered on 02/16/17 08:50; Start 02/14/17 at 09:00; Stop 02/16/17 at 11:11; Status DC Lidocaine (Lidoderm) 1 patch DAILY TD Last administered on 02/14/17 08:58; Start 02/14/17 at 09:00; Stop 02/16/17 at 11:11; Status DC Potassium Chloride (Klor-Con) 20 meq BID92 PO Last administered on 02/16/17 08:50; Start 02/14/17 at 09:00; Stop 02/16/17 at 11:11; Status DC Ketorolac Tromethamine (Toradol) 15 mg PRN Q6HRS PRN IV PAIN; Start 02/14/17 at 08:30; Stop 02/16/17 at 11:11; Status DC Ketorolac Tromethamine (Toradol) 15 mg 1X ONCE IV Last administered on 08:59; Start 02/14/17 at 08:30; Stop 02/14/17 at 08:32; Status DC Sodium Chloride 50 ml @ As Directed STK-MED ONCE .ROUTE ; Start 02/12/17 at 11: 34; Stop 02/14/17 at 10:59; Status DC Ceftriaxone Sodium (Rocephin) 1 gm STK-MED ONCE IV ; Start 02/12/17 at 11:34; Stop 02/14/17 at 11:00; Status DC Sodium Chloride 250 ml @ As Directed STK-MED ONCE .ROUTE ; Start 02/12/17 at 12:47; Stop 02/14/17 at 11:01; Status DC Azithromycin (Zithromax) 500 mg STK-MED ONCE IV ; Start 02/12/17 at 12:48; Stop 02/14/17 at 11:01; Status DC Albuterol/ Ipratropium (Duoneb) 3 ml STK-MED ONCE .ROUTE ; Start 02/12/17 at 13 :09; Stop 02/14/17 at 11:01; Status DC Albuterol/ Ipratropium (Duoneb) 3 ml STK-MED ONCE .ROUTE ; Start 02/14/17 at 05 :59; Stop 02/14/17 at 11:10; Status DC Iohexol (Omnipaque 300 Mg/ml) 75 ml 1X ONCE IV Last administered on 13:42; Start 02/14/17 at 13:00; Stop 02/14/17 at 13:01; Status DC Azithromycin (Zithromax) 500 mg DAILY PO Last administered on 02/16/17 08:57 ; Start 02/15/17 at 09:00; Stop 02/16/17 at 11:11; Status DC Labetalol HCl (Normodyne) 10 mg PRN Q2HR PRN IVP HYPERTENSION, SEE COMMENTS Last administered on 02/16/17 00:28; Start 02/15/17 at 08:15; Stop 02/16/17 at 11:11; Status DC Influenza Virus Vaccine Quadrival (Fluarix Quad [id number] Syringe) 0.5 ml ONCE ONCE VAX IM ; Start 02/16/17 at 09:00; Stop 02/16/17 at 09:01; Status DC Losartan Potassium (Cozaar) 25 mg DAILY PO Last administered on 02/16/17 08: 49; Start 02/15/17 at 09:30; Stop 02/16/17 at 11:11; Status DC Chlorphenir/ Hydrocodone Polistirex (Tussionex) 5 ml PRN Q12HR PRN PO COUGH; Start 02/15/17 at 18:45; Stop 02/16/17 at 11:11; Status DC Magnesium Oxide (Magnesium Oxide) 400 mg DAILY PO Last administered on t 08:50; Start 02/16/17 at 09:00; Stop 02/16/17 at 11:11; Status DC Active Scripts Active Levaquin (Levofloxacin) 750 Mg Tablet 1 Tab PO DAILY Cozaar (Losartan Potassium) 25 Mg Tablet 25 Mg PO DAILY 60 Days Mag-Oxide (Magnesium Oxide) 400 Mg Tablet 400 Mg PO DAILY 30 Days Reported Alprazolam 2 Mg Tablet Patient Instructions Patient Instuctions finish antibiotic. See your primary care physician to have your blood pressure monitored. ISMAEL WOLFE DO Feb 16, 2017 14:59
--- NOTE | 2017-02-17 13:52 | EKG ---
[address] [address] Test Date: 2017-02-15 Test Time: 10:19:51 Pat Name: FRANKO LUZ Department: Room: [facility] 1 Gender: Check[employer] Packer: : [id number] Requested By: ISMAEL WOLFE Order Number: [id number] Reading MD: Dane Han Measurements Intervals [place] Rate: P: [place]: QRS: QRSD: T: QT: QTc: Interpretive Statements No previous ECG available for comparison Electronically Signed On 02-21-2017 14:33:12 [employer] ENG[employer] by Dane Han
== END 2017-02-16 10:45 | disposition home or self-care (01) | DRG 871 ==
LOC: ER 09:24 → ICU 13:36 → UNDOADMIN 13:36 → 1 SOUTH 13:36 → ICU 13:40 → 1 SOUTH 13:40
PROVIDERS: ADMIT Internal Medicine; ATTEND Internal Medicine
DX: A41.9 Sepsis, unspecified organism (principal); E43 Unspecified severe protein-calorie malnutrition; J15.6 Pneumonia due to other Gram-negative bacteria; E83.42 Hypomagnesemia; K76.0 Fatty (change of) liver, not elsewhere classified; D50.9 Iron deficiency anemia, unspecified; E11.9 Type 2 diabetes mellitus without complications; E86.0 Dehydration; I16.1 Hypertensive emergency; Z68.41 Body mass index [BMI] 40.0-44.9, adult; M79.1 Myalgia; D86.9 Sarcoidosis, unspecified; E87.6 Hypokalemia; I10 Essential (primary) hypertension; R07.89 Other chest pain; Z79.4 Long term (current) use of insulin; Z79.899 Other long term (current) drug therapy; Z87.440 Personal history of urinary (tract) infections; Z88.0 Allergy status to penicillin; Z98.61 Coronary angioplasty status; Z82.49 Family history of ischemic heart disease and other diseases of the circulatory system; Z98.84 Bariatric surgery status
CPT/HCPCS: 36415; 71020; 71275; 80048; 80053; 80061; 81001; 81025; 82274; 82728; 83540; 83550; 83605; 83690; 83735; 84484; 85007; 85014; 85018; 85025; 85027; 85379; 85651; 86140; 86850; 86900; 86901; 87040; 87070; 87086; 87205; 87641; 93005; 93306; 94250; 94640; 96361; 96365; 96375; G0238; J0456; J0696; J1885; J2270; J2405; J3010; J3490; J7050; J7620; Q9967; 99285-25; J7030